=== PATIENT | male | born 1985 | race African-American/Black ===

== ENCOUNTER 2022-04-25 12:15 | Emergency (ER) | payer OTHER ==
[~2022-04-25] VITALS: Ht 167.6 cm; Wt 68.0 kg
[2022-04-25] MEDS ORDERED: ONDANSETRON 4MG ODT PO STA (12:25)
[2022-04-25] MEDS ORDERED: ONDANSETRON HCL 4MG/2ML INJ IV STA (12:41)
[2022-04-25] MEDS ORDERED: MORPHINE SULFATE 4 MG/ML CPJ (NOT FOR IM USE) IV STA (12:41)
[2022-04-25 12:46] LABS: BASOPHILS % 0.4 % (0.0-2.0); EOSINOPHILS % 1.7 % (0.0-5.0); HEMATOCRIT. 50.4 % (42.0-52.0); HEMOGLOBIN. 17.2 g/dL (14.0-18.0); LYMPHOCYTES % 14.3 % (20.0-50.0); MEAN CORPUSCULAR HEMOGLOBIN 31.7 pg (28.0-32.0); MEAN CORPUSCULAR VOLUME 93.2 fL (80.0-94.0); MEAN PLATELET VOLUME 9.6 fl (7.4-10.4); MONOCYTES % 12.2 % (2.0-8.0); NEUTROPHILS % 71.4 % (40.0-76.0); PLATELET 224 x1000/uL (130-400); RED CELL DISTRIBUTION WIDTH 12.9 % (11.6-14.6)
[2022-04-25 12:51] VITALS: BP 127/87
[2022-04-25 12:55] LABS: CHLORIDE 110 mEq/L (98-107)
[2022-04-25] MEDS ORDERED: HALOPERIDOL LACTATE 5MG/ML VIAL IM ONE (13:45)
== END 2022-04-25 15:30 | disposition left against medical advice (07) ==
LOC: ER 12:15 → CANBEDREQ 18:32
DX: R10.13 Epigastric pain (principal)
CPT/HCPCS: 36415; 80053; 80320; 83690; 85025; 93005; 96374; 96375; 99284; J1630; J2270; J2405; G0480